=== PATIENT | female | born 1970 | race African-American/Black ===

== ENCOUNTER 2018-09-07 09:21 | Inpatient (IN) | payer SELFPAY ==
--- NOTE | 2018-09-07 10:02 | RAD ---
EXAM: Chest one view: HISTORY: Dyspnea COMPARISON: 06/25/2015 FINDINGS: Heart size: Within normal limits. The lungs: Clear of acute process. No evidence for pneumonia, pleural effusion, acute edema, or pneumothorax, or other significant acute process. IMPRESSION: No significant acute intrathoracic disease.
[2018-09-07] MEDS ORDERED: Nitroglycerin 2% Ointment 1 INCH/1 GM Packet ONE (10:08)
[2018-09-07] MEDS ORDERED: Furosemide 40 MG/4 ML VIAL ONE (10:08)
[2018-09-07 10:10] LABS: #Eosinphils 0.1 thou/uL (0.0-0.7); #Monocytes 0.5 thou/uL (0.11-0.59); #Neutrophils 5.5 thou/uL (1.40-6.50); %Basophils 0.4 % (0.0-1.0); %Eosinophils 1.4 % (0.0-10.0); %Monocytes 6.6 % (0.0-10.0); %Neutrophils 67.5 % (42.0-75.0); Hemoglobin 10.2 g/dL (12.0-16.0); Mean Corpuscular HGB CONC 31.2 g/dL (32.0-36.0); Mean Corpuscular Volume 67.4 fL (78.0-98.0); RBC Distribution Width 18.8 % (11.5-14.5); Red Blood Cell (RBC) Count 4.85 mill/uL (4.20-5.40); White Blood Cell (WBC) Count 8.2 thou/uL (4.8-10.8)
[2018-09-07 10:30] LABS: ALT (SGPT) 19 U/L (8-55); AST (SGOT) 23 U/L (5-34); Albumin 4.5 g/dL (3.5-5.0); Alkaline Phosphatase 97 U/L (40-150); Anion Gap 13 mmol/L (10-20); BUN (Urea Nitrogen) 16 mg/dL (7.0-18.7); Bilirubin, Total 0.3 mg/dL (0.2-1.2); Calc. Creatinine Clearance 0 mL/min (70-130); Carbon Dioxide 26 mmol/L (22-29); Chloride 104 mmol/L (98-107); Estimated GFR-MDRD 37; Globulin 3.7 g/dL (2.4-3.5); Glucose 135 mg/dL (70-105); Potassium 3.3 mmol/L (3.5-5.1); Protein, Total 8.2 g/dL (6.0-8.3); Sodium 140 mmol/L (136-145)
[2018-09-07] MEDS ORDERED: Ondansetron PF 4 MG/2 ML Vial ONE (10:31)
[2018-09-07 10:36] LABS: Elliptocytes SLIGHT = 2-5 cells (100X) (0-1/hpf); Hypochromia SLIGHT = 6-15 cells (100X) (0-5/hpf); MDiff Complete? YES; Mean Platelet Volume 11.5 fL (7.4-10.4); Microcytosis MODERATE=15-30 cells (100X) (0-5/hpf); Ovalocytes SLIGHT = 2-5 cells (100X) (0-1/hpf); Platelet Count 284 thou/uL (130-400); Platelet Morphology Comment Appears Adequate; Polychromasia SLIGHT = 2-3 cells (100X) (0-2/hpf)
[2018-09-07] MEDS ORDERED: Labetalol HCl 100 MG/20 ML VIAL ONE (11:42)
[2018-09-07 14:12] LABS: Troponin I 0.014 ng/mL (< 0.028)
[2018-09-07] MEDS ORDERED: Guaifenesin DM 100-10/5 ML UDCUP PO PRN (14:28)
[2018-09-07] MEDS ORDERED: Ondansetron PF 4 MG/2 ML Vial IVP PRN (14:28)
[2018-09-07] MEDS ORDERED: Zolpidem Tartrate 5 MG TAB PO PRN (14:28)
--- NOTE | 2018-09-07 14:44 | PDOC.EVN ---
Event Note - Event Note Event Note: H&P #[id number]
[2018-09-07] MEDS ORDERED: Potassium Chloride 20 MEQ TAB PO SCH (14:45)
[2018-09-07] MEDS ORDERED: Amlodipine 10 MG TAB PO SCH (16:30)
[2018-09-07 16:51] LABS: Troponin I 0.024 ng/mL (< 0.028)
[2018-09-07] MEDS ORDERED: Amlodipine 5 MG TAB ONE (17:14)
[2018-09-07] MEDS ORDERED: Potassium Chloride 20 MEQ TAB ONE (17:14)
[2018-09-07 18:12] VITALS: BMI 41.3
[2018-09-07 20:17] LABS: Troponin I 0.025 ng/mL (< 0.028)
[2018-09-07] MEDS: Acetaminophen 325 MG TAB PO PRN (20:32)
[2018-09-07] MEDS: Heparin 5,000 UNITS/ML VIAL SC SCH (20:33)
--- NOTE | 2018-09-07 21:35 | HP ---
HISTORY OF PRESENT ILLNESS: This is a 48-year-old female coming to the hospital complaining of shortness of breath, lower extremity swelling and significant severely elevated hypertension. The patient's systolic blood pressure at home was about 220 in the ER the patient's systolic blood pressure is 230. After medical management and treatment, the patient's systolic blood pressure upon the time of evaluation by Internal Medicine is 180. The patient states that she was at the hospital here in 2011, was told that she had congestive heart failure. The patient has not been able to follow up with PCP regularly at that point in time post discharge. The patient at this point in time, does admit to dyspnea on exertion. Admits to some lower extremity swelling as well as elevated blood pressure. The patient states that she otherwise has no other complaints. No alleviating or aggravating factors. Denies any nausea, vomiting, diarrhea, constipation, fevers, chills, or chest pain. Does admit to some mild shortness of breath and dyspnea on exertion. The patient is seen and examined in the ER. No family at bedside. All questions answered. ALLERGIES: NO KNOWN DRUG ALLERGIES. REVIEW OF SYSTEMS: All systems reviewed, pertinent positive in HPI, otherwise negative. PAST MEDICAL HISTORY: Hypertension, congestive heart failure, and chronic kidney disease stage 3. FAMILY HISTORY: Hypertension and hyperlipidemia. HOME MEDICATIONS: See MAR. SOCIAL HISTORY: Nondrinker and nonsmoker. PHYSICAL EXAMINATION: VITAL SIGNS: Blood pressure is 180/95, heart rate of 80, respiratory rate of 18, and temperature 98. GENERAL: The patient lying in bed. Mild discomfort. HEENT: Pupils equal, round, and reactive to light and accommodation. Oral cavity moist and pink. Extraocular muscles intact. NECK: Supple, mobile, and nontender. Thyroid appreciated. CARDIOVASCULAR: Regular rate and rhythm. S1 and S2. No murmurs, rubs, or gallops appreciated. PULMONARY: Clear to auscultation bilaterally. No rales, rhonchi, or wheezing appreciated. ABDOMEN: Rotund. Positive bowel sounds. Soft, nontender, and nondistended. EXTREMITIES: Trace pitting edema. 2+ pedal pulses. No cyanosis or clubbing noted. NEUROLOGIC: Cranial nerves 2 through 12 intact. No loss of motor or sensory function. LABORATORY DATA: Reviewed CBC, BMP, as well as image studies. ASSESSMENT: 1. Congestive heart failure decompensation. 2. Shortness of breath. 3. Hypertension. 4. Hyperlipidemia. PLAN: At this point in time, we will admit the patient to Internal Medicine Team to the telemetry floor. We will start the patient on Norvasc as well as hydrochlorothiazide. We will also start the patient on clonidine p.r.n. for blood pressure systolic above 170. We will obtain troponins x3. Labs in the morning, ferritin, iron, TSH, basic metabolic panel, CBC, and UA. Oxygen p.r.n. as well as rest of the p.r.n. medications. Heparin for DVT prophylaxis. The patient wishes to remain in full code. Case and plan discussed with the patient at length. She understood and agreed to this plan. Job ID: [id number]
[2018-09-07] MEDS: cloNIDine 0.1 MG TAB PO PRN (23:54)
[2018-09-08 06:54] LABS: #Eosinphils 0.1 thou/uL (0.0-0.7); #Lymphocytes 1.5 thou/uL (1.20-3.40); #Monocytes 0.5 thou/uL (0.11-0.59); #Neutrophils 5.1 thou/uL (1.40-6.50); %Basophils 0.3 % (0.0-1.0); %Eosinophils 1.3 % (0.0-10.0); %Lymphocytes 20.5 % (21.0-51.0); %Monocytes 6.6 % (0.0-10.0); %Neutrophils 71.3 % (42.0-75.0); Hemoglobin 9.2 g/dL (12.0-16.0); Mean Corpuscular HGB CONC 30.9 g/dL (32.0-36.0); Mean Corpuscular Hemoglobin 20.5 pg (27.0-31.0); Mean Corpuscular Volume 66.3 fL (78.0-98.0); Mean Platelet Volume 11.2 fL (7.4-10.4); Platelet Count 277 thou/uL (130-400); RBC Distribution Width 18.5 % (11.5-14.5); Red Blood Cell (RBC) Count 4.49 mill/uL (4.20-5.40); White Blood Cell (WBC) Count 7.2 thou/uL (4.8-10.8)
[2018-09-08 07:09] LABS: Anion Gap 13 mmol/L (10-20); BUN (Urea Nitrogen) 14 mg/dL (7.0-18.7); Calc. Creatinine Clearance 73 mL/min (70-130); Calcium 9.2 mg/dL (7.8-10.44); Carbon Dioxide 25 mmol/L (22-29); Chloride 106 mmol/L (98-107); Estimated GFR-MDRD 42; Glucose 116 mg/dL (70-105); Potassium 3.7 mmol/L (3.5-5.1); Sodium 140 mmol/L (136-145)
[2018-09-08 07:12] LABS: Iron 25 ug/dL (50-170); Iron Binding Capacity, Total 348 mcg/dL (265-497)
[2018-09-08 07:43] LABS: Ferritin 9.77 ng/mL (10-291); Thyroid Stimulating Hormone 1.17 uIU/mL (0.35-4.94)
[2018-09-08] MEDS: Hydrochlorothiazide 25 MG TAB PO SCH (08:56)
[2018-09-08] MEDS: Amlodipine 10 MG TAB PO SCH (08:57)
[2018-09-08] MEDS: Heparin 5,000 UNITS/ML VIAL SC SCH ×2 (08:58→20:03)
[2018-09-08] MEDS: Acetaminophen 325 MG TAB PO PRN (11:29)
--- NOTE | 2018-09-08 11:52 | PDOC.PN ---
- Subjective Encounter Start Date: 09/08/18 Encounter Start Time: 11:51 Patient seen and examined, no new issues or complaints, all questions answered. - Objective Vital Signs & Weight: Vital Signs (12 hours) Temp Pulse Resp BP BP BP BP 09/08/18 11:38 98.0 F 98 18 169/90 H 09/08/18 08:00 09/08/18 07:40 98.1 F 96 18 151/93 H 09/08/18 03:51 98.3 F 92 17 170/91 H 09/07/18 23:54 191/96 H 09/07/18 23:53 189/96 H Pulse Ox 09/08/18 11:38 98 09/08/18 08:00 96 09/08/18 07:40 96 09/08/18 03:51 97 09/07/18 23:54 09/07/18 23:53 Weight Weight 230 lb 11.2 oz I&O: 09/07/18 09/08/18 09/09/18 06:59 06:59 06:59 Intake Total 480 Output Total 1100 Balance -620 Result Diagrams: 09/08/18 06:24 09/08/18 06:24 Phys Exam - Physical Examination Constitutional: NAD HEENT: PERRLA, moist MMs, sclera anicteric Neck: no nodes, no JVD, supple Respiratory: no wheezing, no rales, no rhonchi Cardiovascular: RRR, no significant murmur, no rub Gastrointestinal: soft, non-tender, no distention, positive bowel sounds Musculoskeletal: no edema, pulses present Dx/Plan (1) Hypertensive emergency Code(s): I16.1 - HYPERTENSIVE EMERGENCY Status: Acute (2) Congestive heart failure (CHF) Code(s): I50.9 - HEART FAILURE, UNSPECIFIED Status: Acute - Plan * cont norvasc + HCTZ for now * target SBP < 150mmHg * dietary advise given * echo pending * possible DC in AM if labs stable, echo accpetable and BP stable * case and plan d/w patient at length, family at bedside, all questions answered.
[2018-09-08] MEDS: cloNIDine 0.1 MG TAB PO PRN (20:03)
[2018-09-09 02:16] LABS: Bilirubin Negative (Negative); Blood, Urine Negative (Negative); Clarity CLOUDY (Clear); Glucose, Urine (Dipstick) Negative (Negative); Leukocyte Negative (Negative); Nitrite Negative (Negative); Protein, Urine (Dipstick) 30 mg/dL (Neg-Trace); pH, Urine 6.5 (5.0-9.0)
[2018-09-09 02:18] LABS: Bacteria/HPF None Seen HPF (None Seen); Hyaline Casts/LPF 7-10 HYALINE CAST LPF (0-3 Hyaline); Pathc Cast-AUWi Flag 2.03 (0-2.49); RBC/HPF 0-3 HPF (0-3)
[2018-09-09 05:30] LABS: #Eosinphils 0.1 thou/uL (0.0-0.7); #Lymphocytes 1.8 thou/uL (1.20-3.40); #Monocytes 0.2 thou/uL (0.11-0.59); #Neutrophils 4.3 thou/uL (1.40-6.50); %Basophils 0.2 % (0.0-1.0); %Eosinophils 1.7 % (0.0-10.0); %Lymphocytes 28.5 % (21.0-51.0); %Monocytes 3.7 % (0.0-10.0); %Neutrophils 65.9 % (42.0-75.0); Hemoglobin 9.7 g/dL (12.0-16.0); Mean Corpuscular HGB CONC 31.5 g/dL (32.0-36.0); Mean Corpuscular Hemoglobin 21.1 pg (27.0-31.0); Mean Corpuscular Volume 66.8 fL (78.0-98.0); Mean Platelet Volume 11.8 fL (7.4-10.4); Platelet Count 267 thou/uL (130-400); Red Blood Cell (RBC) Count 4.62 mill/uL (4.20-5.40); White Blood Cell (WBC) Count 6.5 thou/uL (4.8-10.8)
[2018-09-09 05:52] LABS: Anion Gap 14 mmol/L (10-20); BUN (Urea Nitrogen) 19 mg/dL (7.0-18.7); Calc. Creatinine Clearance 66 mL/min (70-130); Calcium 9.8 mg/dL (7.8-10.44); Carbon Dioxide 24 mmol/L (22-29); Chloride 103 mmol/L (98-107); Estimated GFR-MDRD 38; Glucose 198 mg/dL (70-105); Potassium 3.2 mmol/L (3.5-5.1); Sodium 138 mmol/L (136-145)
[2018-09-09] MEDS: Heparin 5,000 UNITS/ML VIAL SC SCH (08:54)
[2018-09-09] MEDS: Hydrochlorothiazide 25 MG TAB PO SCH (08:54)
[2018-09-09] MEDS: Amlodipine 10 MG TAB PO SCH (08:54)
[2018-09-09] MEDS ORDERED: Lisinopril 10 MG TAB PO SCH (09:00)
--- NOTE | 2018-09-09 11:49 | PDOC.EVN ---
Event Note - Event Note Event Note: DC SUMMARY #[id number]
[2018-09-09 12:14] VITALS: BP 138/74; TEMP 99.5
--- NOTE | 2018-09-10 01:34 | DIS ---
DATE OF ADMISSION: 09/07/2018 DATE OF DISCHARGE: 09/09/2018 ADMITTING DIAGNOSES: Congestive heart failure, hypertension, hypertensive urgency, as well as chest discomfort. DISCHARGE DIAGNOSES: 1. Hypertensive urgency, stable. 2. Congestive heart failure, stable. 3. Chest discomfort, resolved. HOSPITAL COURSE: This is a 48-year-old female, admitted to Internal Medicine Team due to chest discomfort and hypertensive urgency and emergency. The patient was admitted to Internal Medicine Team, monitored very closely, had ACS ruled out. The patient had an echocardiogram performed which showed an ejection fraction of 40% to 45% as well as dilated left ventricle at 7 cm, mild dilated left atrium as well, thickened mitral valve leaflets appear MR and mild tricuspid regurgitation. The patient was started on Norvasc, as well as hydrochlorothiazide and lisinopril. The patient was advised to see an outpatient PCP within 1 week. 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 The patient upon the time of discharge was stable. Denied any nausea, vomiting, diarrhea, constipation, chest pain, fevers, or shortness of breath. Stated that she was back to her baseline and felt ready to go home. DISPOSITION: Home. FOLLOWUP: Follow up with PCP within 1 week. MEDICATIONS: See MAR. ACTIVITY: As tolerated with assistance as needed. DIET: Low-fat, low-calorie, high-fiber plant based vegetarian diet. CONDITION: Stable. PROGNOSIS: Good. Once again, case and plan discussed with patient at length. She understood and agreed with this plan. Job ID: [id number]
--- NOTE | 2018-09-13 02:26 | PQF ---
[employer] Winform Viewer ROSALIA JUNAID RUBALCAVA [id number] CLINICAL DOCUMENTATION CLARIFICATION FORM: POST DISCHARGE Addendum to original discharge summary date: ____ Late entry note date: __ DATE: 09-13-2018 ATTN: Junaid Sky Please exercise your independent, professional judgment in responding to the clarification form. Clinical indicators are provided on the bottom of this form for your review Based on your clinical judgment kindly clarify the type of patients CHF. Please check appropriate box(s): HEART FAILURE: A. TYPE: [ ] Systolic / HFrEF [ ] Diastolic / HFpEF [ ] Combined Systolic / Diastolic [ ] Other diagnosis please specify: [ ] Unable to determine For continuity of documentation, please document condition throughout progress notes and discharge summary. Thank You. CLINICAL INDICATORS: H&P Dr. Garcia 09/07 pg1 - complaining of shortness of breath, lower extremity swelling and significant severely elevated hypertension H&P Dr. Garcia 09/07 pg2 - Assessment: Congestive heart failure decompensation DANAE Garcia 09/09 pg1 - The patient had echocardiogram performed which showed an ejection fraction of 40% to 45% as well as dilated left ventricle at 7 cm, mild dilated atrium as well, thickened mitral valve leaflets appear MR and mild tricuspid regurgitation Laboratory 09/07 - DTU=078.3 H Vital signs - QR=951/123 mmhg (09/07), 170/91 mmhg (09/08), TTE Dr. Gilmore 09/08 - Ejection fraction is visually estimated at 45-50% RISKS: H&P Dr. Garcia Hypertension H&P Dr. Garcia Congestive Heart failure H&P Dr. Garcia Chronic Kidney Disease stage 3 TREATMENTS: DS Dr. Garcia 09/09 - Diet: low fat, low calorie, high fiber plant based vegetarian diet Chest X-ray Dr. Booker 09/[address] Gilmore 09/08JUL 12 - Lasix IV 40 mg JUL 12 - Labetalol 100 mg PO JUL 12 - Amlodipine 10 mg PO (This form is maintained as a part of the permanent medical record) 2014 [employer]. All Rights Reserved Martha [email or web address] [not provided] MTDD
== END 2018-09-09 15:40 | disposition home or self-care (01) | DRG 292 ==
LOC: ERS 09:21 → 2NO 13:15 → ERHOLD 13:23 → 2NO 17:57
PROVIDERS: ADMIT Internal Medicine; ATTEND Internal Medicine
DX: I13.0 Hypertensive heart and chronic kidney disease with heart failure and stage 1 through stage 4 chronic kidney disease, or unspecified chronic kidney disease (principal); I16.1 Hypertensive emergency; N18.3 Chronic kidney disease, stage 3 (moderate); E78.5 Hyperlipidemia, unspecified; I08.1 Rheumatic disorders of both mitral and tricuspid valves; I50.9 Heart failure, unspecified; Z79.899 Other long term (current) drug therapy
CPT/HCPCS: 36415; 71045; 80048; 80053; 81001; 82728; 83540; 83550; 83880; 84443; 84484; 85025; 93005; 93306; 93798; 94760; 96374; 96375; J1644; J1940; J2405